=== PATIENT | male | born 1990 | race Caucasian/White ===

== ENCOUNTER 2017-04-05 14:34 | Emergency (ER) | payer SELFPAY ==
[~2017-04-05] VITALS: Ht 167.6 cm; Wt 68.0 kg
[2017-04-05 14:49] VITALS: BP 146/90
[2017-04-05] MEDS ORDERED: DIPH,PERTUSS(ACELL),TET VAC/PF 0.5 ML IM-VACC ONE ×2 (16:19→16:30)
[2017-04-05] MEDS ORDERED: PROPARACAINE OPHTH 0.5%, 15ML ONE (16:44)
== END 2017-04-05 16:50 | disposition home or self-care (01) ==
LOC: ED 15:59
DX: T15.11XA Foreign body in conjunctival sac, right eye, initial encounter (principal); X58.XXXA Exposure to other specified factors, initial encounter; Y93.89 Activity, other specified; Y92.89 Other specified places as the place of occurrence of the external cause; Y99.8 Other external cause status
CPT/HCPCS: 65210; 90471; 90715